=== PATIENT | female | born 1980 | race Hispanic/Latino ===

== ENCOUNTER 2025-02-17 08:41 | Emergency (ER) | payer MEDICAID ==
[~2025-02-17] VITALS: Ht 170.2 cm; Wt 81.6 kg
--- NOTE | 2025-02-17 08:53 | ERN ---
General Chief Complaint: Abdominal Pain Stated Complaint: ABD PAIN/NAUSEA Time Seen by MD: 08:43 Source: patient History of Present Illness Initial Comments Patient is a 45-year-old female coming in with multiple complaints. Patient states she was being evaluated by mental health facility but was brought in due to abdominal pain. Prior to this patient states that she was sent to a hospital due to seizure-like activity. Patient does state she has a history of seizures and has not taken her Tegretol in six months. Patient also states that when she had a seizure-like activity she did hit her head. Allergies: Coded Allergies: meropenem (Unverified Allergy, Unknown, 02/17/25) Past Medical History Past Medical History: Diabetes-Type II, High Cholesterol Medical History Other: UC, GASTRIC ULCERS Past Surgical History: None ROS Dictation CONSTITUTIONAL: No chills, no fever, no weakness, no diaphoresis, no malaise. HEAD/FACE: No signs of trauma. EENT: No eye pain, no blurred vision, no tearing, no double vision, no ear pain, no ear discharge, no nose pain, no nasal congestion, no throat pain, no throat swelling, no mouth pain. RESPIRATORY: No cough, no orthopnea, no SOB, no stridor, no wheezing. CARDIOVASCULAR: No chest pain, no edema, no palpitations, no syncope. GASTROINTESTINAL/ABDOMINAL: abdominal pain, no constipation, no diarrhea, no nausea, no vomiting. GENITOURINARY: No abnormal discharge, no dysuria, no frequent urination, no hematuria. No complaints of pain in the genitals. MUSCULOSKELETAL: No back pain, no gout, no joint pain, no joint swelling, no muscle pain, no muscle stiffness, no neck pain. INTEGUMENTARY: No change in color, no change in hair/nails, no dryness, no lesion, no lumps, no rash. NEUROLOGICAL/PSYCH: No anxiety, not depressed, no emotional problem, no headache, no numbness, no pre-existing deficit, no history of seizures, no trem ors, no weakness. HEMATOLOGIC/LYMPHATIC: Not anemic, no history of blood clots, no apparent bleeding, no bruising, glands not swollen. All Systems Negative, Except as Noted. Physical Exam Physical Exam Dictation VITAL SIGNS: Reviewed. GENERAL APPEARANCE: Alert, oriented x3, no acute distress, obese. HEAD AND FACE: Non-traumatic. EYES: PERRL, pink conjunctivas, eyelid no trauma, anterior chamber clear. EARS: Pinnas intact and no signs of trauma or erythema. Ear canals clear and no discharge. TMs no erythema. NOSE: No discharge, no bleeding. OROPHARYNX: Mouth normal, teeth no caries, tongue pink. Pharynx clear, no erythema. Tonsils no exudates, no abscesses noted. Mucous membrane moist. NECK: Supple, non-tender, no thyromegaly, no masses, no JVD, no bruits. BREAST: Deferred. CHEST: No tenderness, no crepitus, no paradoxical movement, no retractions. LUNGS: Clear, well-ventilated, symmetric, no rales, no wheezing, no rhonchi, no stridor, good breath sounds bilaterally. HEART: Regular rate, regular rhythm, no murmur, no gallops. VASCULAR: No peripheral edema. ABDOMEN: Soft, positive bowel sounds, nondistended, no guarding, tender, no rebound, no masses no hepatomegaly, no splenomegaly, no Hernandez's sign, no hernias. RECTAL: Deferred. GENITAL: Deferred. NEUROLOGICAL: Normal speech, gross motor function intact, gross sensory func tion intact. MUSCULOSKELETAL: Neck nontender, full range of motion, back nontender, full range of motion. EXTREMITIES: Nontender, full range of motion. SKIN: Color pink, dry, no turgor, no rash, no lacerations, no abrasions, no contusions. LYMPHATICS: Deferred. Results Laboratory and Microbiology Lab and Micro Result Laboratory Tests Test 02/17/25 09:30 02/17/25 10:32 White Blood Count 6.7 K/uL (4.8-10.8) Red Blood Count 2.96 MIL/uL (4.00-5.50) L Hemoglobin 9.0 g/dL (12.0-16.0) L Hematocrit 27.2 % (36-48) L Mean Corpuscular Volume 91.9 fL (79-99) Mean Corpuscular Hemoglobin 30.4 pg (27.0-33.0) Mean Corpuscular Hemoglobin Concent 33.1 g/dL (32.0-36.0) Red Cell Distribution Width 17.1 % (11.0-15.5) H Platelet Count 197 K/uL (130-400) Mean Platelet Volume 10.3 fL (7.5-10.5) Immature Granulocyte % (Auto) 0.3 % (0-1) Neutrophils (%) (Auto) 70.4 % (40.0-77.0) Lymphocytes (%) (Auto) 23.5 % (21.0-51.0) Monocytes (%) (Auto) 4.3 % (3.0-13.0) Eosinophils (%) (Auto) 0.9 % (0.0-8.0) Basophils (%) (Auto) 0.6 % (0.0-5.0) Neutrophils # (Auto) 4.7 K/uL (1.8-7.7) Lymphocytes # (Auto) 1.6 K/uL (1.0-4.8) Monocytes # (Auto) 0.3 K/uL (0.1-1.0) Eosinophils # (Auto) 0.06 K/uL (0.00-0.70) Basophils # (Auto) 0.04 K/uL (0.00-0.20) Absolute Immature Granulocyte (auto 0.02 K/uL (0-1) Nucleated Red Blood Cells 0.0 % (0.0-0.19) Sodium Level 138 mmol/L (136-145) Potassium Level 3.6 mmol/L (3.5-5.1) Chloride Level 103 mmol/L (101-111) Carbon Dioxide Level 33 mmol/L (21-32) H Blood Urea Nitrogen 8 mg/dL (7-18) Creatinine 0.7 mg/dL (0.5-1.0) Glomerular Filtration Rate Calc 109 mL/min (>90) Random Glucose 64 mg/dL (70-105) L Total Calcium 7.5 mg/dL (8.5-10.1) L Total Bilirubin 1.3 mg/dL (0.2-1.0) H Aspartate Amino Transf (AST/SGOT) 37 U/L (10-37) Alanine Aminotransferase (ALT/SGPT) 23 U/L (12-78) Alkaline Phosphatase 157 U/L (50-136) H Total Creatine Kinase 96 U/L (21-232) Troponin I High Sensitivity 4 ng/L (4-50) Total Protein 5.0 g/dL (6.0-8.3) L Albumin 1.6 g/dL (3.5-5.0) L Lipase 10 U/L (16-77) L Urine Color YELLOW (YELLOW) Urine Appearance CLOUDY (CLEAR) H Urine pH 6.0 (5.0-8.0) Urine Specific [place] 1.018 (1.001-1.031) Urine Protein 20 mg/dL (NEGATIVE) H Urine Glucose (UA) NEGATIVE mg/dL (NEGATIVE) Urine Ketones NEGATIVE mg/dL (NEGATIVE) Urine Occult Blood LARGE (NEGATIVE) H Urine Nitrate NEGATIVE (NEGATIVE) Urine Bilirubin NEGATIVE mg/dL (NEGATIVE) Urine Urobilinogen 0.2 mg/dL (0.2-1.0) Urine Leukocyte Esterase 500 Jo/uL (NEGATIVE) H Urine RBC 26-50 /HPF (0-1) H Urine WBC 11-25 /HPF (0-1) H Urine Bacteria Rare /HPF (None Seen) Urine Hyaline Casts 6-10 /LPF (0-1 /LPF) H Urine Yeast with Hyphae Few /HPF (None Seen) H Urine HCG, Qualitative NEGATIVE (NEGATIVE) Labs Reviewed?: Yes EKG/XRAY/US/CT/MRI EKG Comment 02/17/2025 time 0913 Ventricular rate [address] wave elevation or depression ID [id number] CT Scan Comment [place] [id number] [address] IMAGING REPORT Signed PATIENT: TREVOR LANG MR#: [id number] : 1980 SEX: F AGE: 45 LOCATION: [facility] ORDER 112 STATUS: REG ER REPORT#: [id number] SERVICE [id number] REASON: fall ORDERING PHYSICIAN: KOLBY EDMONDS MD PROCEDURE: HEAD WO - CT HEAD/BRAIN W/O CONTRAST EXAM: CT Head Without IV contrast. CLINICAL HISTORY: fall TECHNIQUE: Axial computed tomography images of the head/brain without intravenous contrast. COMPARISON: None provided. FINDINGS: BRAIN: No evidence of acute hemorrhage. No mass lesion. No CT evidence for acute territorial infarct. No midline shift or extra-axial collections. VENTRICLES: No hydrocephalus. ORBITS: The orbits are unremarkable. SINUSES AND MASTOIDS: The paranasal sinuses and mastoid air cells are clear. BONES: No fracture. SOFT TISSUES: Unremarkable. IMPRESSION: No acute intracranial abnormality. /Lynn DICTATED BY: OLIVER OTERO MD DATE: 02/17/251322 ELECTRONICALLY SIGNED BY: OLIVER OTERO MD DATE: 02/17/25 132 MDM MDM: Differential diagnosis: History of seizure, UTI, psychiatric history Rationale: Tests considered and ordered secondary to shared decision making include: Previous outside records reviewed: Old ER visits. Risk of complication and/or morbidity or mortality of patient management: None Medications-Per medication reconciliation Need for hospitalization: Patient does not meet criteria for hospitalization. Need for emergency major/minor surgery: No Patient is a 45-year-old female coming in multiple complaints. Patient was being evaluated mental health facility in his here due to abdominal discomfort. During initial interview patient states that had had a seizure previously and she does has a history of seizures but has not been taking her medication. One dose of the medication was given an ER. Along with this patient was found to have a urinary tract infection patient received IV antibiotics we will continue antibiotics at [facility] facility. Patient will be sent back for further evaluation. ED Course Orders Procedure Category Date Status Time Cbc With Differential LAB 02/17/25 Complete 08:46 Comprehensive LAB 02/17/25 Complete Metabolic Panel 08:46 Troponin I High LAB 02/17/25 Complete Sensitivity 08:46 ,Urine Test LAB 02/17/25 Complete 08:46 Urinalysis Profile LAB 02/17/25 Complete 08:46 12 Lead Ekg Tracing- EKG 02/17/25 Complete Technical 08:46 0.9%Nacl 1000ml (Ns PHA 02/17/25 Complete 1000ml) 09:00 Pantoprazole 40mg Inj PHA 02/17/25 Complete (Protonix 40mg Inj 09:00 Creatine Kinase, Total LAB 02/17/25 Complete 08:46 Lipase LAB 02/17/25 Complete 08:46 Culture Urine RAUL 02/17/25 In Process 10:50 Levofloxacin 500 PHA 02/17/25 In Process Mg/D5w 100 Ml 11:00 Ondansetron 4mg Inj PHA 02/17/25 Complete (Zofran 4mg Inj) 11:30 Ct Head/Brain W/O CT 02/17/25 Resulted Contrast 11:23 Carbamazepine Er PHA 02/17/25 Complete 200mg Tab (Tegretol Er 12:30 Current Medications Medications (Trade) Dose Ordered Sig/Noe Route PRN Reason Start Time Stop Time Status Last Admin Dose Admin Carbamazepine (TEGRetol ER 200MG TAB) 200 mg ONCE ONCE PO 02/17/25 12:30 02/17/25 12:31 DC 02/17/25 12:21 Levofloxacin/ Dextrose 100 ml @ 100 mls/hr Q24H IV 02/17/25 11:00 02/27/25 10:59 02/17/25 11:47 Ondansetron HCl (zoFRAN 4MG INJ) 4 mg ONCE ONCE IVP 02/17/25 11:30 02/17/25 11:31 DC 02/17/25 11:46 Pantoprazole Sodium (PROTonix 40MG INJ) 40 mg ONCE ONCE IVP 02/17/25 09:00 02/17/25 09:01 DC 02/17/25 11:46 Sodium Chloride 1,000 ml @ 0 mls/hr ONCE ONCE IV 02/17/25 09:00 02/17/25 09:01 DC 02/17/25 11:47 Vital Signs Date Time Temp Pulse Resp B/P (MAP) Pulse Ox O2 Delivery O2 Flow Rate FiO2 02/17/25 08:48 98.1 110 18 122/81 100 Room Air* 0 21 DX & DISP Disposition: Discharge Departure Impression: Primary Impression: UTI (urinary tract infection) Additional Impressions: History of psychiatric disorder, History of seizures Condition: Stable Additional Instructions: FOLLOW-UP WITH PRIMARY CARE PROVIDER IN 1 TO 2 DAYS. TAKE MEDICATIONS DIRECTED HERE IN THE EMERGENCY ROOM. OKAY TO CONTINUE HOME MEDICATIONS UNLESS OTHERWISE DISCUSSED DURING YOUR VISIT IN THE EMERGENCY ROOM TODAY. RETURN TO YOUR NEAREST EMERGENCY ROOM IF SYMPTOMS WORSEN OR IF THERE IS NO IMPROVEMENT. CALL 911 IF YOU NEED IMMEDIATE ASSISTANCE. TAKE TYLENOL [id number] NEEDED AND IF NO CONTRAINDICATIONS ARE PRESENT. INCREASE ORAL HYDRATION. A WOUND CULTURE OR URINE CULTURE WAS ORDERED HERE IN THE EMERGENCY ROOM DEPARTMENT PLEASE FOLLOW-UP WITH PRIMARY CARE PROVIDER AND ADVISE THEM TO GET REPORTS FROM OUR FACILITY. IF YOU HAD ANY MONIQUE WRAP/SPLINTS THAT WERE APPLIED HERE, PLEASE DO NOT REMOVE THEM UNTIL YOU SEE YOUR PRIMARY CARE OR SPECIALTY. Referrals: Referrals: SELF,REFERRAL (PCP) RIDDHI GUZMAN MD Time of Disposition: 12:38 KOLBY EDMONDS MD Feb 17, 2025 08:53
--- NOTE | 2025-02-17 09:30 | NUR ---
PT IS A VERY HARD STICK. TRIED SEVERAL TIMES,VEINS COLLAPSING. PT STATES SHE HAS A RIGH SUBCLAVIAN PORT THAT IS USUALLY USED FOR HER ULCERATIVE COLITIS TREATMENT AND BLOOD TRANSFUSIONS. PORT LAST ACCESSED YESTERDAY. DR EDMONDS INFORMED.
--- NOTE | 2025-02-17 09:31 | EKG ---
[facility] Test Date: 2025-02-17 Test Time: 09:13:10 Pat Name: TREVOR LANG Department: [facility] Room: Gender: F Car Manager: [id number] : 1980 Requested By: KOLBY EDMONDS Order Number: [id number] Reading MD: Ciro Perry Measurements Intervals [place] Rate: 104 P: 51 WV: 150 QRS: 52 QRSD: 92 T: -8 QT: 386 QTc: 507 Interpretive Statements Sinus tachycardia Low voltage, precordial leads Borderline T abnormalities, diffuse leads No previous ECG available for comparison Electronically Signed On 02-17-2025 15:35:29 CDT by Ciro Perry Please click the below link to view image of tracing.
[2025-02-17 09:47] LABS: IMMATURE GRANULOCYTE ABSOLUTE 0.02 K/uL (0-1); NUCLEATED RED BLOOD CELLS 0.0 % (0.0-0.19); PLATELET COUNT (AUTO) 197 K/uL (130-400); RED BLOOD CELL COUNT(AUTO) 2.96 MIL/uL (4.00-5.50); RED CELL DISTRIBUTION WIDTH 17.1 % (11.0-15.5); WHITE BLOOD COUNT (AUTO) 6.7 K/uL (4.8-10.8)
[2025-02-17 10:03] LABS: ASPARTATE AMINOTRANSFERASE 37.0 U/L (10-37); CREATINE KINASE, TOTAL 96.0 U/L (21-232); CREATININE 0.7 mg/dL (0.5-1.0); GLOMERULAR FILTR. RATE CALC 109.0 mL/min (>90); GLUCOSE,RANDOM 64.0 mg/dL (70-105); SODIUM SERUM 138.0 mmol/L (136-145); TOTAL PROTEIN, SERUM 5.0 g/dL (6.0-8.3); UREA NITROGEN, BLOOD 8.0 mg/dL (7-18)
[2025-02-17 10:30] VITALS: TEMP 98.1
[2025-02-17 10:41] LABS: APPEARANCE,URINE CLOUDY (CLEAR); GLUCOSE, URINE (UA) NEGATIVE (NEGATIVE); LEUKOCYTE ESTERASE ,URINE 500 Leu/uL (NEGATIVE); NITRATE,URINE NEGATIVE (NEGATIVE); OCCULT BLOOD,URINE LARGE (NEGATIVE)
[2025-02-17 10:46] LABS: ADD UA MICROSCOPIC YES
[2025-02-17 10:52] LABS: HCG,QUALITATIVE URINE NEGATIVE (NEGATIVE)
[2025-02-17 11:14] LABS: YEAST,URINE HYPHAE Few /HPF (None Seen)
[2025-02-17] MEDS: 0.9%NACL 1000ML 1,000 ML IV ONE (11:47)
--- NOTE | 2025-02-17 12:00 | NUR ---
DR EDMONDS APPROVED THE USE OF THE [facility]
--- NOTE | 2025-02-17 12:24 | HMCIMG ---
EXAM: CT Head Without IV contrast. CLINICAL HISTORY: fall TECHNIQUE: Axial computed tomography images of the head/brain without intravenous contrast. COMPARISON: None provided. FINDINGS: BRAIN: No evidence of acute hemorrhage. No mass lesion. No CT evidence for acute territorial infarct. No midline shift or extra-axial collections. VENTRICLES: No hydrocephalus. ORBITS: The orbits are unremarkable. SINUSES AND MASTOIDS: The paranasal sinuses and mastoid air cells are clear. BONES: No fracture. SOFT TISSUES: Unremarkable. IMPRESSION: No acute intracranial abnormality. /[place]
[2025-02-17 12:30] VITALS: BP 119/74; PULSE 98; RESP 17; O2SAT 97
--- NOTE | 2025-02-17 13:25 | NUR ---
PT WISHES TO STOP THE IV ANTIBIOTIC (HAS 50 ML LEFT) AND RETURN TO [facility]. DISCHARGE PAPERWORK AND PRESCRIPTION IS READY. SHE IS GETTING PICKED UP BY [facility],SITTER IS WITH HER. ACCESS NEEDLE REMOVED FROM PORT.
[2025-02-17] MEDS ORDERED: CIPR-279 PO (13:27)
[2025-02-17] MEDS ORDERED: LEVO750T68 PO (13:28)
--- NOTE | 2025-02-19 10:21 | NUR ---
[facility] CALLED AT THIS TIME TO NOTIFY OF URINE CULTURE RESULTS AND SENSITIVITY REPORT, [facility] NURSE AWARE AND INSTRUCTED TO INFORM INPATIENT PHYSICIAN OF RESULTS./ZOILA
== END 2025-02-17 13:25 ==
LOC: EDH 08:41
DX: N39.0 Urinary tract infection, site not specified (principal); E11.9 Type 2 diabetes mellitus without complications; E78.00 Pure hypercholesterolemia, unspecified; Z87.11 Personal history of peptic ulcer disease
CPT/HCPCS: 99285; 96365; 70450; 96375 ×2; 82550; 84484; 80053; 83690; 85025; 87086 ×2; 87186; 81001; 81025; 36415; 93005; J1956; J7030; J2405; J2470